=== PATIENT | male | born 1955 | race Caucasian/White ===

== ENCOUNTER 2016-09-10 07:50 | Inpatient (IN) | payer MEDICARE, BC ==
[~2016-09-10] VITALS: Ht 177.8 cm; Wt 89.5 kg
--- NOTE | ~2016-09-10 | OR ---
ADMIT: 09/10/2016 RM/LOC: 525 [facility] [place] MR#: [id number] [address] [id number] [place] [address] [place] [id number] Operative/Delivery Room Report SEX: M AGE: 61 : 1955 SURGERY DATE: 09/10/2016 SURGEON: Brad Sears MD PREOPERATIVE DIAGNOSIS: Cervical radiculopathy, worse on the right, with severe neural foraminal stenosis, cervical 4-5, 5-6, and 6-7 in the setting of prior ACDF with continued neuroforaminal compression. POSTOPERATIVE DIAGNOSIS: Cervical radiculopathy, worse on the right, with severe neural foraminal stenosis, cervical 4-5, 5-6, and 6-7 in the setting of prior ACDF with continued neuroforaminal compression. PROCEDURE: 1. Wide cervical laminectomy with cutting into the facet as necessary and widely decompressing the neural foramen as widely as was possible given the severely degenerative anatomy, cervical 4-5, 5-6, and 6-7. 2. Placement of segmental DePuy Synthes lateral mass screws, cervical 4, 5, 6, and 7. 3. Posterior arthrodesis utilizing autograft and allograft, autograft harvested from the same incision, cervical 4, 5, 6, and 7. 4. Intraoperative fluoroscopy. 5. Intraoperative neuromonitoring. TRAY CHECKER: Daniella Quintero APRN. DESCRIPTION OF PROCEDURE: After gaining informed consent, the patient was taken to the operative theater and placed under general endotracheal anesthesia in supine position. He was placed in Bazan billet header and turned prone on a Chele table with all pressure points purposely padded prior to performing the procedure. He was very cautiously turned prone. A time-out was utilized to ascertain the correct site and side of surgery as well as other pertinent patient historical information. An incision was fashioned in the midline of the neck. This was then taken down to the nuchal fascia which was opened and then subperiosteal dissection was utilized taking the musculature off the spinous process and lamina out towards the lateral aspect to the facets. A self-retaining retractor was then placed. A high-speed drill was used to decorticate 1 mm inferomedial to the severely arthritic degenerative facets. These were then hand-drilled to 14 mm, sounded, and vancomycin powder coated screws were then implanted. Once this was completed without sign of complication, attention was turned to laminectomy. Formal en bloc laminectomy was prepared by undercutting at the laminofacet junction and then cutting further towards the facet side and out toward the neural foramen at the facets. The posterior bone was decorticated at this time as well. Once this was completed, there was some continued severe bony overgrowth that without complete resection of the facets appeared that it would be unlikely to be completely able to be removed. So, there did ADMIT: 09/10/2016 RM/LOC: 525 [facility] [place] MR#: [id number] [address] [place] [id number] [place] [address] Operative/Delivery Room Report SEX: M AGE: 61 : 1955 appear to be some continued residual arthritic bone, worse on the right than the left. Once this was completed, attention was turned to closure. The posterior instrumentation was placed and torqued to appropriate setting including cross connector. Fluoroscopic x-rays were obtained, and the wound was closed with simple running 0 Ethibond in the nuchal fascia with simple, inverted, and interrupted 2-0 Vicryl in the hypodermic tissue and subcuticular 3-0 Monocryl in the skin with Steri-Strips over that. A FRANCISCO drain was day- lighted out. The patient was taken to postanesthesia care unit. Scott Leon assisted with suction, retraction, and closure at the end of the case. ESTIMATED BLOOD LOSS: 125 mL. SPECIMEN: None. Brad Sears MD/ armaan JOB #: [id number] CC: Brad Sears, Attending Physician Pipe Schulz Jr., Family Physician
--- NOTE | ~2016-09-10 | DS ---
ADMIT: 09/10/2016 RM/LOC: 525 [facility] MR#: [id number] ACC#: [id number] [address] [facility] [address] [place] [id number] [place] [address] [place] [id number] Discharge Summary SEX: M AGE: 61 : 1955 ADMISSION DATE: 09/10/2016 DISCHARGE DATE: 09/13/2016 SERVICE: Neurosurgery. REASON FOR ADMISSION: 1. Cervical stenosis. 2. Cervical radiculopathy. 3. Numbness and tingling. 4. History of cervical surgery. PROCEDURES: Posterior cervical 4-7 laminectomy and fusion. HOSPITAL COURSE: Mr. Freitas tolerated his procedure well. Postoperatively, he was taken to the med/surg floor for monitoring and care. Postop day #1, he was awake and alert. He was afebrile, his vital signs were stable. He was moving all extremities x4 with 5/5 strength. He reported the numbness to his arms was completely gone. His dressing was clean, dry, and intact. His FRANCISCO drain was patent with quite a large amount of serosanguineous drainage. He was complaining of some nausea and wanted to know if there was something other than the Percocet to help with his pain. He was given some tramadol to see if this would be effective for his pain. He did work with Physical Therapy and Occupational Therapy and tolerated this quite well. Postop day #2, he was awake and alert. He was afebrile, and his vital signs were stable. He was moving all extremities x4. He was complaining of a little neck pain and the tramadol was not quite enough. He started using the Percocet again. He reported he had no nausea at this point in time with it. He did work with Physical Therapy and Occupational Therapy and was tolerating this quite well. Postop day #3, he was awake and alert. He was afebrile, his vital signs were stable. He was moving all extremities x4. His FRANCISCO drain was patent with serosanguineous drainage. His incision was clean, dry, and intact, and no hematoma or cerebrospinal fluid accumulation was noted. His FRANCISCO drain was discontinued without difficulty. He was ambulating, urinating, and defecating per his norm and was requesting discharge home. DISCHARGE CONDITION: Good. DISCHARGE MEDICATIONS: 1. Colace 100 mg p.o. b.i.d. 2. Bacitracin ointment to incision at bedtime. 3. Percocet 5/325, 1-2 p.o. q.4 hours p.r.n. pain. 4. Valium 5 mg 1-2 p.o. q.8 hours p.r.n. muscle spasm/pain. 5. Meloxicam 15 mg daily. 6. Losartan 100 mg at bedtime. 7. Carvedilol 25 mg b.i.d. 8. Metformin extended release 500 mg b.i.d. 9. Glimepiride 2 mg b.i.d. 10.Tylenol Arthritis 1300 mg q.a.m. 11.Aspirin 325 mg daily. ADMIT: 09/10/2016 RM/LOC: 525 [facility] MR#: [id number] [address] [place] [id number] [place] [address] Discharge Summary SEX: M AGE: 61 : 1955 12.Nasacort 50 mcg 1 spray daily. DISCHARGE INSTRUCTIONS: (Per Dr. Sears): He can have a diabetic diet. He may shower, he should not take any tub baths, he should pat his incision dry. He should not lift anything greater than [address] while he is on his pain medications. He should not take any NSAIDs, but his meloxicam is okay. He will call with any questions or concerns including neurological worsening, signs or symptoms of infection, or any other issues. FOLLOWUP: He will follow up with Daniella in clinic in 2 weeks. DISPOSITION: He was discharged home. Total [id number] time for the discharge planning and care coordination was 30 minutes. Daniella Quintero APRN / Brad Sears MD / marlena JOB #: [id number] CC: Brad Sears MD, Attending Physician Pipe Schulz Jr, MD, Family Physician
[2016-09-14] MEDS ORDERED: MOBIC15 MG PO (14:18)
[2016-09-14] MEDS ORDERED: COZAAR100 MG PO (14:19)
[2016-09-14] MEDS ORDERED: CARVEDILOL25 MG PO (14:19)
[2016-09-14] MEDS ORDERED: AMARYL2 MG PO (14:19)
[2016-09-14] MEDS ORDERED: GLUCOPHAGE XR500 MG PO (14:19)
[2016-09-14] MEDS ORDERED: NASACORT16.9 ML NS (14:20)
[2016-09-14] MEDS ORDERED: ASA325 MG PO (14:20)
[2016-09-14] MEDS ORDERED: TYLENOL ARTHRI650 MG PO (14:20)
[2016-09-14] MEDS ORDERED: COLACE-DPS100 MG PO (14:21)
[2016-09-14] MEDS ORDERED: BACITRACIN15 G1 TP (14:21)
[2016-09-14] MEDS ORDERED: PERCOCET 5 DPS1 TAB PO (14:21)
[2016-09-14] MEDS ORDERED: TYLENOL DPS325 MG PO (14:21)
[2016-09-14] MEDS ORDERED: BETADINE30 ML TP (14:22)
[2016-09-14] MEDS ORDERED: VALIUM-DPS5 MG PO (14:22)
== END 2016-09-13 12:45 | disposition home or self-care (01) | DRG 473 ==
LOC: 5MS 11:06 → WOR 11:06 → 5MS 15:51
PROVIDERS: ADMIT Neurological Surgery
PROC: 0RG2071 Fusion of 2 or more Cervical Vertebral Joints with Autologous Tissue Substitute, Posterior Approach, Posterior Column, Open Approach (ICD-10-PCS; principal; 2016-09-10)
DX: M47.22 Other spondylosis with radiculopathy, cervical region (principal); I10 Essential (primary) hypertension; M48.02 Spinal stenosis, cervical region; J44.9 Chronic obstructive pulmonary disease, unspecified; E11.9 Type 2 diabetes mellitus without complications; E78.5 Hyperlipidemia, unspecified; G47.30 Sleep apnea, unspecified; Z82.49 Family history of ischemic heart disease and other diseases of the circulatory system; Z87.891 Personal history of nicotine dependence